=== PATIENT | male | born 1970 | race Caucasian/White ===

== ENCOUNTER 2023-06-19 21:44 | Observation (INO) ==
[2023-06-19] MEDS: TRANEXAMIC ACID / 0.7% NACL 1,000 MG/100 ML BAG IV STA (22:10)
[2023-06-19] MEDS: FAMOTIDINE 20MG IV PUSH 20 MG/5 ML SYR IV STA (22:10)
[2023-06-19] MEDS: diphenhydrAMINE 50 MG/ML VIAL IV STA (22:11)
[2023-06-19] MEDS: dexAMETHasone**PF** 10 MG/ML VIAL IV ONE (22:11)
[2023-06-19 22:34] LABS: Basophils # (auto) 0.07 K/uL (0.00-0.20); Basophils % (auto) 0.7 %; Eosinophils # (auto) 0.36 K/uL (0.00-0.50); Eosinophils % (auto) 3.8 %; Hematocrit (blood only) 45.5 % (42.0-52.0); Hemoglobin 15.4 g/dl (14.0-18.0); Immature Granulocytes # (auto) 0.03 K/uL (0.01-0.20); Immature Granulocytes % (auto) 0.3 %; Lymphocytes # (auto) 2.78 K/uL (1.20-3.40); Lymphocytes % (auto) 29.6 %; Mean Corpuscular Hemoglobin 30.9 pg (25.0-34.0); Mean Corpuscular Hgb Conc 33.8 g/dL (32.0-36.0); Mean Corpuscular Volume 91.2 fL (80.0-100.0); Mean Platelet Volume 9.1 fL (9.4-12.4); Monocytes # (auto) 0.79 K/uL (0.11-0.59); Monocytes % (auto) 8.4 %; Neutrophils # (auto) 5.36 K/uL (1.40-6.50); Neutrophils % (auto) 57.2 %; Platelet Count 264 K/uL (130-400); RDW Coefficient of Variation 12.6 % (11.5-14.5); RDW Standard Deviation 41.3 fL (36.4-46.3); Red Blood Count 4.99 M/uL (4.70-6.10); White Blood Count 9.39 K/ul (4.8-10.8)
[2023-06-19 23:03] LABS: Albumin Globulin Ratio 1.3 (0.9-2); Albumin Level 4.5 gm/dl (3.4-5.0); BUN Creatinine Ratio 11.8 (10-20); Bilirubin,Total 0.7 mg/dl (0.2-1.0); Calcium 9.5 mg/dl (8.6-10.3); Creatinine Clr Calc Pharmacy 91.9 ml/min; Est GFR (African American) 108.2 ml/min; Est GFR (Non-African American) 93.4 ml/min; Globulin 3.4 gm/dl (2.5-4.0); Potassium 3.7 mmol/L (3.5-5.1); Total Protein 7.9 gm/dl (6.0-8.3)
--- NOTE | 2023-06-20 00:24 | Emergency Department Note ---
History of Present Illness General Chief complaint: Facial Injury/Pain Stated complaint: SWOLLEN LIP Time Seen by Provider: 06/19/23 21:55 History of Present Illness This 53-year-old male presents the ER complaining of allergic reaction. Patient states he had [place]'s this morning and then since then his upper lip is been quite swollen. He took some Benadryl and Zyrtec with minimal improvement of symptoms. He is on losartan. No new medications. Patient denies chest pain, dyspnea, difficulty swallowing, breathing issues or any other medical complaints. No history of angioedema. Home Medications Medication Instructions Recorded Confirmed Type amlodipine 10 mg tablet 10 mg PO QAM 06/19/23 06/19/23 History losartan 100 mg tablet 100 mg PO QAM 06/19/23 06/19/23 History omeprazole 20 mg capsule,delayed 20 mg PO DAILYBB 06/19/23 06/19/23 History release Allergies Allergy/AdvReac Type Severity Reaction Status Date / Time No Known Allergies Allergy Verified 06/19/23 22:57 Past Med/Surg History Social History Smoking Status: Current every day smoker Preferred Language: Georgian Feels Safe at Home: Yes Review of Systems A total of 10 systems reviewed and were otherwise negative Physical Exam Vital Signs Vital Signs - 24 hr 06/19/23 21:44 06/19/23 22:03 06/19/23 22:20 Temperature 36.6 C Temperature Source Temporal Artery Scan Pulse Rate 93 H 97 H 91 H Pulse Rate [Apical] Pulse Rhythm Regular Regular Pulse Rhythm [Apical] Pulse Strength Normal Pulse Strength [Apical] Respiratory Rate 18 18 Respiratory Effort / Characteristics Non-Labored Respiratory Depth Normal Respiratory Pattern Regular Blood Pressure 158/104 H Blood Pressure [Right Arm] Blood Pressure Mean 122 Blood Pressure Mean [Right Arm] Blood Pressure Position Sitting Pulse Oximetry 97 99 Oxygen Delivery Method Room Air Room Air Sepsis Recent Fever Within 48 Hours No Sepsis New/Unexplained Change in Mental Status N/A Sepsis Action Taken by Nursing No Action Required 06/19/23 22:45 06/20/23 01:17 Temperature Temperature Source Pulse Rate Pulse Rate [Apical] 98 H 89 Pulse Rhythm Pulse Rhythm [Apical] Regular Pulse Strength Pulse Strength [Apical] Normal Respiratory Rate 18 18 Respiratory Effort / Characteristics Non-Labored Spontaneous Non-Labored Respiratory Depth Normal Normal Respiratory Pattern Blood Pressure Blood Pressure [Right Arm] 142/100 H 139/94 Blood Pressure Mean Blood Pressure Mean [Right Arm] 114 109 Blood Pressure Position Pulse Oximetry 97 95 Oxygen Delivery Method Room Air Room Air Sepsis Recent Fever Within 48 Hours Sepsis New/Unexplained Change in Mental Status Sepsis Action Taken by Nursing VITALS: Vitals are noted on the nurse's note and reviewed by myself. Vital signs stable. GENERAL: Pleasant gentleman with upper lip quite swollen, in no acute distress, nondiaphoretic, well-developed well-nourished. SKIN: The skin was without rashes, erythema, edema, or bruising. There is no tenting of the skin. Capillary reflex less than 2 seconds. HEAD: Normocephalic atraumatic. EARS: External auditory canals clear EYES: Pupils equal round and reactive to light and accommodation. Conjunctivae without injection, sclerae without icterus. Extraocular movements intact. NOSE: Patent, no discharge. MOUTH: Mucous membranes moist. Pharynx without erythema or exudate. Uvula midline. Airway patent. Tongue does not deviate. No tongue swelling. No other facial swelling. NECK: Supple without nuchal rigidity. No lymphadenopathy. No thyromegaly. Cervical spine is nontender. No JVD. HEART: Regular rate and rhythm LUNGS: Clear to auscultation bilaterally without wheezes, rales or rhonchi. No retractions or accessory muscle use. ABDOMEN: Positive bowel sounds x 4. Normal tympanic percussion. Soft, nontender, without masses or organomegaly. Armijo sign negative. No guarding or rebound tenderness. No CVA tenderness MUSCULOSKELETAL: No muscle atrophy, erythema, or edema noted. NEURO: Patient was alert and oriented to person place and time. Normal sensation to light and sharp touch. No focal neurological deficits. Course Administered Medications Discontinued Medications Dexamethasone Sodium Phosphate (DexamethasonePf 10 Mg/Ml Vial) 10 mg IV NOW ONE Stop: 06/19/23 22:03 Last Admin: 06/19/23 22:11 Dose: 10 mg Documented By: [facility] Diphenhydramine HCl (Diphenhydramine 50 Mg/Ml Vial) 50 mg IV NOW STA Stop: 06/19/23 22:03 Last Admin: 06/19/23 22:11 Dose: 50 mg Documented By: [facility] Famotidine (Pepcid 20mg Iv Push) 20 mg in 5 mls @ 2.5 mls/min IV NOW STA Stop: 06/19/23 22:03 Last Admin: 06/19/23 22:10 Dose: 2.5 mls/min Documented By: [facility] Tranexamic Acid (Tranexamic Acid / 0.7% Nacl) 1,000 mg in 100 mls @ 600 mls/hr IV NOW STA Stop: 06/19/23 22:11 Last Infusion: 06/19/23 22:45 Dose: Infused Documented By: [facility] Admin: 06/19/23 22:10 Dose: 600 mls/hr Documented By: [facility] Medical Decision Making Medical Records Attestation: I reviewed the patient's medical records. Home Medications Current Medication List: was personally reviewed by me Laboratory Data Attestation: I reviewed the patient's lab results. 06/19/23 22:10 06/19/23 22:10 Lab Results 06/19/23 Range/Units 22:10 WBC 9.39 (4.8-10.8) K/ul RBC 4.99 (4.70-6.10) M/uL Hgb 15.4 (14.0-18.0) g/dl Hct 45.5 (42.0-52.0) % MCV 91.2 (80.0-100.0) fL MCH 30.9 (25.0-34.0) pg MCHC 33.8 (32.0-36.0) g/dL RDW Std Deviation 41.3 (36.4-46.3) fL RDW Coeff of Eloisa 12.6 (11.5-14.5) % Plt Count 264 (130-400) K/uL MPV 9.1 L (9.4-12.4) fL Immature Gran % (Auto) 0.3 % Neut % (Auto) 57.2 % Lymph % (Auto) 29.6 % [place] % (Auto) 8.4 % Eos % (Auto) 3.8 % Baso % (Auto) 0.7 % Neut # (Auto) 5.36 (1.40-6.50) K/uL Lymph # (Auto) 2.78 (1.20-3.40) K/uL [place] # (Auto) 0.79 H (0.11-0.59) K/uL Eos # (Auto) 0.36 (0.00-0.50) K/uL Baso # (Auto) 0.07 (0.00-0.20) K/uL Immature Gran # (Auto) 0.03 (0.01-0.20) K/uL Sodium 136 (136-145) mmol/L Potassium 3.7 (3.5-5.1) mmol/L Chloride 101 (98-107) mmol/L Carbon Dioxide 25 (21-32) mmol/L Anion Gap 10 (3-11) BUN 11 (6-23) mg/dl Creatinine 0.93 (0.6-1.4) mg/dl Est Cr Clr Drug Dosing 91.9 ml/min Est GFR ( Amer) 108.2 ml/min Est GFR (Non-Af Amer) 93.4 ml/min BUN/Creatinine Ratio 11.8 (10-20) Glucose 98 (70-99(Fasting)) mg/dl Calcium 9.5 (8.6-10.3) mg/dl Total Bilirubin 0.7 (0.2-1.0) mg/dl AST 33 (13-39) U/L ALT 20 (7-52) U/L Alkaline Phosphatase 56 (34-104) U/L Total Protein 7.9 (6.0-8.3) gm/dl Albumin 4.5 (3.4-5.0) gm/dl Globulin 3.4 (2.5-4.0) gm/dl Albumin/Globulin Ratio 1.3 (0.9-2) MDM Narrative Prior records/ancillary studies reviewed. Triage Nursing notes reviewed. Additional history obtained from nursing. The patient's history was concerning for possible allergic reaction. Differential diagnosis: Etiologies such as allergic reaction, anaphylaxis, urticaria, Johnson-Francisco syndrome, toxic epidermal necrolysis, erythema multiforme, cellulitis, as well as others were entertained. Physical examination: As above. ER treatment provided: Continuous cardiac monitoring An order was placed for continuous cardiac monitoring. The monitor shows a rate of 60-100 with a sinus rhythm. Benadryl 50 mg IV Pepcid 20 mg IV Decadron 10 mg IV TXA 1 g IV On reassessment the patient felt better. Diagnostic interpretation by me: Independently Interpreted by myself and showed no worrisome leukocytosis, stable H&H Consultation: Medicine was consulted and case was discussed. Patient was admitted to the medical service. It appears the patient had an allergic reaction with concerns this could be related to his ARB and. Patient's upper lip was still quite swollen and because of this medicine was consulted and patient was admitted to the medical service. Patient is agreeable. No tongue involvement. No posterior throat involvement that was visible. By the evaluation outlined above emergent etiologies such as recurring anaphylaxis, anaphylatic shock, airway compromise, Johnson-Francisco syndrome, toxic epidermal necrolysis, erythema multiforme, infectious etiologies, as well as others were deemed relatively unlikely. The pt informed about the findings as listed above. All questions were answered and pleased with the treatment. The chart was completed utilizing [employer] Speech voice recognition software. Grammatical errors, random word insertions, pronoun errors, and incomplete sentences are an occassional consequence of this system due to software limitations, ambient noise, and hardware issues. Any formal questions or concerns about the content, text, or information contained within the body of this dictation should be directly addressed to the physician material assistant for clarification. Impression & Plan Angioedema Discharge Plan Visit Data Chief Complaint: Facial Injury/Pain Stated Complaint: SWOLLEN LIP ED Provider: Cecille Larios ED Midlevel Provider: Lupe Singh Discharge Problem: Angioedema Patient Disposition: Being Evaluated by Hospitalist Condition: Good Forms Stand Alone Forms: [email or web address] Prescriptions Prescriptions: No Action amlodipine 10 mg tablet 10 mg PO QAM omeprazole 20 mg capsule,delayed release(DR/EC) 20 mg PO DAILYBB losartan 100 mg tablet 100 mg PO QAM Referrals Referrals: PCP,NO [Primary Care Provider] - Discharge Problem: Angioedema Qualifiers: Encounter type: initial encounter Qualified Code(s): T78.3XXA - Angioneurotic edema, initial encounter
--- NOTE | 2023-06-20 01:45 | History & Physical Report ---
Date of Service June 20, 2023 Assessment & Plan (1) Angioedema: Plan: 53-year-old male with past medical history significant for chronic rhinitis, aortic root enlargement, hypertension, GERD, tobacco use disorder, history of alcohol abuse presents with swelling of the right upper lip since yesterday morning. Patient states he went to [employer] and after eating food he noticed swelling in the upper lip and also on the face. Currently swelling of face res olved, still has swelling in the upper lip. Denies any difficulty swallowing. No shortness of breath. No chest pain. No nausea. No abdominal pain. No headache. No runny nose or sore throat. No cough. Normal bowel and bladder movements. Hemodynamics are okay. Angioedema Of upper lip On losartan for several years Will hold losartan Got Decadron, IV Benadryl, IV Pepcid and TXA in the ER. Will continue with p.o. prednisone, Zyrtec and p.o. Pepcid and IV Benadryl as needed Needs to follow with PCP and allergy immunology Hypertension Continue home amlodipine Holding losartan Needs different antihypertensives IV labetalol as needed for now Will monitor Tobacco abuse Needs counseling Alcoholism Says drinks 4 beers daily says can go without drinking for few days without getting withdrawal symptoms will place on thiamine and folic acid and ativan prn. close monitor Aortic root enlargement Echo from July 2021 shows mildly enlarged aortic root at 4.1 cm follow-up DVT prophylaxis SCDs for now Disposition Med/telemetry. Full code History of Present Illness Chief Complaint: Angioedema of upper lip Primary Care Provider: NO PCP 53-year-old male with past medical history significant for chronic rhinitis, aortic root enlargement, hypertension, GERD, tobacco use disorder, history of alcohol abuse presents with swelling of the right upper lip since yesterday morning. Patient states he went to [employer] and after eating food he noticed swelling in the upper lip and also on the face. Currently swelling of face resolved, still has swelling in the upper lip. Denies any difficulty swallowing. No shortness of breath. No chest pain. No nausea. No abdominal pain. No headache. No runny nose or sore throat. No cough. Normal bowel and bladder movements. Hemodynamics are okay. Past medical history. As mentioned above. Past surgical history. EGD. Reconstruction of nose. Social history. Smokes 0.5 packs a day for 10 years. Alcohol :seems drinking 4 beers daily. No drug use. Family history.father from [place] at age of 52 Allergies Allergy/AdvReac Type Severity Reaction Status Date / Time No Known Allergies Allergy Verified 06/19/23 22:57 Home Medications Medication Instructions Recorded Confirmed Type amlodipine 10 mg tablet 10 mg PO QAM 06/19/23 06/19/23 History losartan 100 mg tablet 100 mg PO QAM 06/19/23 06/19/23 History omeprazole 20 mg capsule,delayed 20 mg PO DAILYBB 06/19/23 06/19/23 History release Past Med/Surg History Social History Smoking Status: Current every day smoker Tobacco Type: Cigarettes Cigarettes Per Day: 5-6; Do You Dip or Chew Tobacco: Yes; Tobacco Cessation Education Requested by Patient: No Hx Alcohol Use: Yes Alcohol type: beer Hx Substance Use: No Preferred Language: Bulgarian Communication Ability: Effective Flavor Maker Required: No Beliefs That Will Affect Care: None Current Living Situation: Family Current Living Situation Comment: Lives with sister Manisha Feels Safe at Home: Yes Safety Concerns: Feels Safe At This Time Assistive Devices: None Review of Systems Review of Systems: All systems reviewed & are unremarkable except as noted in HPI & below Physical Exam Physical Exam: General- Not in distress. Head- atraumatic. Upper lip swollen Eyes- PERRL ENT- oropharynx clear. Upper lip swollen Neck- supple, no JVD. Lungs- clear to auscultation no wheezing or crackles. Heart- regular rate and rhythm; no murmur, no gallop. Abdomen- normal bowel sounds, soft, nontender, no distension. Extremities- no pretibial edema, no erythema seen. Neuro- alert, oriented PERRL, EOMI; no facial palsy; no dysarthria; moves extrem ities. Results & Data Results & Data Vital Signs (Past 12 Hours) Vital Signs Temp Pulse Pulse Resp BP BP Pulse Ox 06/20/23 01:17 89 18 139/94 95 06/19/23 22:45 98 H 18 142/100 H 97 06/19/23 22:20 91 H 06/19/23 22:03 97 H 18 99 06/19/23 21:44 36.6 C 93 H 18 158/104 H 97 O2 Del Method 06/20/23 01:17 Room Air 06/19/23 22:45 Room Air 06/19/23 22:20 06/19/23 22:03 Room Air 06/19/23 21:44 Room Air Diagnostic Findings Laboratory Results WBC 9.39 K/ul (4.8-10.8) 06/19/23 22:10 RBC 4.99 M/uL (4.70-6.10) 06/19/23 22:10 Hgb 15.4 g/dl (14.0-18.0) 06/19/23 22:10 Hct 45.5 % (42.0-52.0) 06/19/23 22:10 MCV 91.2 fL (80.0-100.0) 06/19/23 22:10 MCH 30.9 pg (25.0-34.0) 06/19/23 22:10 MCHC 33.8 g/dL (32.0-36.0) 06/19/23 22:10 RDW Std Deviation 41.3 fL (36.4-46.3) 06/19/23 22:10 RDW Coeff of Eloisa 12.6 % (11.5-14.5) 06/19/23 22:10 Plt Count 264 K/uL (130-400) 06/19/23 22:10 MPV 9.1 fL (9.4-12.4) L 06/19/23 22:10 Immature Gran % (Auto) 0.3 % 06/19/23 22:10 Neut % (Auto) 57.2 % 06/19/23 22:10 Lymph % (Auto) 29.6 % 06/19/23 22:10 [place] % (Auto) 8.4 % 06/19/23 22:10 Eos % (Auto) 3.8 % 06/19/23 22:10 Baso % (Auto) 0.7 % 06/19/23 22:10 Neut # (Auto) 5.36 K/uL (1.40-6.50) 06/19/23 22:10 Lymph # (Auto) 2.78 K/uL (1.20-3.40) 06/19/23 22:10 [place] # (Auto) 0.79 K/uL (0.11-0.59) H 06/19/23 22:10 Eos # (Auto) 0.36 K/uL (0.00-0.50) 06/19/23 22:10 Baso # (Auto) 0.07 K/uL (0.00-0.20) 06/19/23 22:10 Immature Gran # (Auto) 0.03 K/uL (0.01-0.20) 06/19/23 22:10 Sodium 136 mmol/L (136-145) 06/19/23 22:10 Potassium 3.7 mmol/L (3.5-5.1) 06/19/23 22:10 Chloride 101 mmol/L (98-107) 06/19/23 22:10 Carbon Dioxide 25 mmol/L (21-32) 06/19/23 22:10 Anion Gap 10 (3-11) 06/19/23 22:10 BUN 11 mg/dl (6-23) 06/19/23 22:10 Creatinine 0.93 mg/dl (0.6-1.4) 06/19/23 22:10 Est Cr Clr Drug Dosing 91.9 ml/min 06/19/23 22:10 Est GFR ( Amer) 108.2 ml/min 06/19/23 22:10 Est GFR (Non-Af Amer) 93.4 ml/min 06/19/23 22:10 BUN/Creatinine Ratio 11.8 (10-20) 06/19/23 22:10 Glucose 98 mg/dl (70-99(Fasting)) 06/19/23 22:10 Calcium 9.5 mg/dl (8.6-10.3) 06/19/23 22:10 Total Bilirubin 0.7 mg/dl (0.2-1.0) 06/19/23 22:10 AST 33 U/L (13-39) 06/19/23 22:10 ALT 20 U/L (7-52) 06/19/23 22:10 Alkaline Phosphatase 56 U/L (34-104) 06/19/23 22:10 Total Protein 7.9 gm/dl (6.0-8.3) 06/19/23 22:10 Albumin 4.5 gm/dl (3.4-5.0) 06/19/23 22:10 Globulin 3.4 gm/dl (2.5-4.0) 06/19/23 22:10 Albumin/Globulin Ratio 1.3 (0.9-2) 06/19/23 22:10 Code Status & VTE Plan VTE Prophylaxis Plan VTE Prophylaxis will be ordered: Yes (1) Angioedema Encounter type: initial encounter Qualified Code(s): T78.3XXA - Angioneurotic edema, initial encounter
[2023-06-20] MEDS ORDERED: LABETALOL HCL IV 5 MG/ML 20ML IV PRN (05:13)
[2023-06-20] MEDS ORDERED: ACETAMINOPHEN 325 MG TAB PO PRN (05:13)
[2023-06-20] MEDS ORDERED: diphenhydrAMINE 50 MG/ML VIAL IV PRN (05:13)
[2023-06-20] MEDS ORDERED: LORazepam 0.5 MG in SYRINGE 0.25 ML IV PRN (05:13)
[2023-06-20] MEDS ORDERED: NITROGLYCERIN SL 0.4 MG/TAB TAB SL PRN (05:13)
[2023-06-20] MEDS: THIAMINE HCL 100 MG in SYRINGE 9 ML IV STA (06:28)
[2023-06-20] MEDS: SODIUM CHLORIDE 0.9% 1,000 ML IV SCH (06:33)
[2023-06-20] MEDS: PANTOprazole 40 MG TAB PO SCH (07:54)
[2023-06-20] MEDS: amLODIPine BESYLATE 5 MG TAB PO SCH (07:54)
[2023-06-20] MEDS: FAMOTIDINE 20 MG TAB PO SCH (07:54)
[2023-06-20] MEDS: predniSONE 20 MG TAB PO SCH (07:54)
[2023-06-20] MEDS: FOLIC ACID 1 MG TAB PO SCH (07:55)
[2023-06-20] MEDS: CETIRIZINE HCL 10 MG TABLET PO SCH (07:55)
[2023-06-20] MEDS: CEROVITE ADV FORMULA TAB PO SCH (07:55)
[2023-06-20] MEDS: THIAMINE HCL 100 MG TAB PO SCH (07:55)
[2023-06-20 08:11] LABS: Hematocrit (blood only) 44.4 % (42.0-52.0); Hemoglobin 15.1 g/dl (14.0-18.0); Immature Granulocytes # (auto) 0.02 K/uL (0.01-0.20); Immature Granulocytes % (auto) 0.4 %; Lymphocytes # (auto) 0.41 K/uL (1.20-3.40); Lymphocytes % (auto) 8.6 %; Mean Corpuscular Hemoglobin 30.9 pg (25.0-34.0); Mean Corpuscular Volume 90.8 fL (80.0-100.0); Mean Platelet Volume 9.4 fL (9.4-12.4); Monocytes # (auto) 0.06 K/uL (0.11-0.59); Monocytes % (auto) 1.3 %; Neutrophils # (auto) 4.28 K/uL (1.40-6.50); Neutrophils % (auto) 89.7 %; Platelet Count 269 K/uL (130-400); RDW Coefficient of Variation 12.4 % (11.5-14.5); RDW Standard Deviation 41.6 fL (36.4-46.3); Red Blood Count 4.89 M/uL (4.70-6.10); White Blood Count 4.77 K/ul (4.8-10.8)
[2023-06-20 08:26] LABS: BUN Creatinine Ratio 16.1 (10-20); Calcium 9.5 mg/dl (8.6-10.3); Creatinine Clr Calc Pharmacy 98.2 ml/min; Est GFR (African American) 114.2 ml/min; Est GFR (Non-African American) 98.5 ml/min; Magnesium 2.1 mg/dl (1.7-2.4); Potassium 4.3 mmol/L (3.5-5.1)
--- NOTE | 2023-06-20 13:06 | Communication Note ---
Date of Service: June 20, 2023 Patient seen and examined Has upper lip swelling. Denies any sore throat, dysphagia, odynophagia, shortness of breath, rash. Exam notable for upper lip swelling, tachycardia and elevated BP Continue prednisone, famotidine, cetirizine. Losartan has been discontinued. Start carvedilol 3.125 mg twice daily. Monitor blood pressure Continue amlodipine Other plans as detailed in H&P this morning
[2023-06-20] MEDS: carvediloL 3.125 MG TAB PO STA (14:32)
[2023-06-21 06:23] LABS: Hematocrit (blood only) 40.2 % (42.0-52.0); Hemoglobin 13.6 g/dl (14.0-18.0); Mean Corpuscular Hemoglobin 30.6 pg (25.0-34.0); Mean Corpuscular Hgb Conc 33.8 g/dL (32.0-36.0); Mean Corpuscular Volume 90.3 fL (80.0-100.0); Mean Platelet Volume 9.5 fL (9.4-12.4); Platelet Count 250 K/uL (130-400); RDW Coefficient of Variation 12.5 % (11.5-14.5); RDW Standard Deviation 40.9 fL (36.4-46.3); Red Blood Count 4.45 M/uL (4.70-6.10); White Blood Count 9.21 K/ul (4.8-10.8)
[2023-06-21 06:51] LABS: BUN Creatinine Ratio 18.1 (10-20); Calcium 8.9 mg/dl (8.6-10.3); Creatinine Clr Calc Pharmacy 90.9 ml/min; Est GFR (African American) 106.9 ml/min; Est GFR (Non-African American) 92.2 ml/min; Potassium 3.3 mmol/L (3.5-5.1)
[2023-06-21] MEDS: carvediloL 3.125 MG TAB PO SCH (08:56)
--- NOTE | 2023-06-21 10:48 | Discharge Summary ---
Date of Service June 21, 2023 Admission HPI Per Admitting Provider 53-year-old male with past medical history significant for chronic rhinitis, aortic root enlargement, hypertension, GERD, tobacco use disorder, history of alcohol abuse presents with swelling of the right upper lip since yesterday morning. Patient states he went to [place] and after eating food he noticed swelling in the upper lip and also on the face. Currently swelling of face resolved, still has swelling in the upper lip. Denies any difficulty swallowing. No shortness of breath. No chest pain. No nausea. No abdominal pain. No headache. No runny nose or sore throat. No cough. Normal bowel and bladder movements. Hemodynamics are okay. Past medical history. As mentioned above. Past surgical history. EGD. Reconstruction of nose. Social history. Smokes 0.5 packs a day for 10 years. Alcohol :seems drinking 4 beers daily. No drug use. Family history.father from [place] at age of 52 Admission Exam Per Admitting Provider General- Not in distress. Head- atraumatic. Upper lip swollen Eyes- PERRL ENT- oropharynx clear. Upper lip swollen Neck- supple, no JVD. Lungs- clear to auscultation no wheezing or crackles. Heart- regular rate and rhythm; no murmur, no gallop. Abdomen- normal bowel sounds, soft, nontender, no distension. Extremities- no pretibial edema, no erythema seen. Neuro- alert, oriented PERRL, EOMI; no facial palsy; no dysarthria; moves extremities. Principal Diagnosis Angioedema of upper lip Discharge Exam General: No acute distress Eyes: PERRL, conjunctivae normal, not pale, anicteric sclerae, EOM intact bilaterally ENMT: External ear and nose normal, oropharynx des. Upper lip swelling mostly resolved Respiratory: Normal respiratory effort, no respiratory distress, lungs clear to auscultation, no crackles and no wheezes Cardiovascular: S1 S2 Gastrointestinal (Abdomen): Abdomen is not distended, soft, non-tender to palpation, no guarding, no palpable hepatosplenomegaly, normal bowel sounds Musculoskeletal: No cyanosis or clubbing, all extremities motor strength 5/5 Neurologic: PERRL No focal weakness, sensation grossly intact Psychiatric: Alert and oriented x 3, euthymic affect Discharge Data Allergies Allergy/AdvReac Type Severity Reaction Status Date / Time losartan Allergy Severe angioedema Verified 06/21/23 08:03 Consultations 06/19/23 23:28 ED Decision to Admit Stat Hospital Course (1) Angioedema: 53-year-old male with past medical history significant for chronic rhinitis, aortic root enlargement, hypertension, GERD, tobacco use disorder, history of alcohol abuse presents with swelling of the right upper lip since yesterday morning. Patient states he went to [place] and after eating food he noticed swelling in the upper lip and also on the face. Currently swelling of face resolved, still has swelling in the upper lip. Denies any difficulty swallowing. No shortness of breath. No chest pain. No nausea. No abdominal pain. No headache. No runny nose or sore throat. No cough. Normal bowel and bladder movements. Hemodynamics are okay. Angioedema Of upper lip Has been on losartan for several years Will hold losartan Got Decadron, IV Benadryl, IV Pepcid and TXA in the ER. Was treated with p.o. prednisone, Zyrtec and p.o. Pepcid and IV Benadryl as needed Discharged on prednisone 40mg daily for 3 days, then 20mg daily for 3 days Discharged on cetirizine 10mg daily for 1 week and pepcid 20mg BID for 1 week Losartan stopped. Avoid ACEI/ARB To follow up with PCP who can arrange allergy follow up Hypertension Continue home amlodipine Losartan stopped as above Started on Carvedilol 3.125mg BID for better BP control Tobacco abuse Counseled about smoking cessation Alcoholism Says drinks 4 beers daily Counseled about alcohol cessation Aortic root enlargement Echo from July 2021 shows mildly enlarged aortic root at 4.1 cm PCP to follow-up Total Time Total Time Spent Total Time Spent (In Minutes): 35 Total Time Includes: Examination of the Patient, Discharge Planning and Medication Reconciliation Discharge Plan Discharge Items Patient Disposition: Home - Self-Care Reason For Visit: ANGIOEDEMA OF UPPER LIP Discharge Diagnosis: Angioedema of upper lip Condition on Discharge: Good Activity: Resume your previous activity Non-emergency contact: Primary Care Provider Call non-emergency contact if: you have any medication questions Follow-up/Referrals: PCP,NO [Primary Care Provider] - Diet: Heart Healthy Addtl Attending Provider Instructions: Mr Peñaloza You came to the hospital with upper lip swelling. You were managed for angioedema. PLEASE STOP TAKING LOSARTAN GOING FORWARD. You were started on carvedilol for your hypertension. Continue taking amlodipine. You are being discharged on Prednisone. Take 40mg daily for next 3 days, then 20mg daily for 3 days and then stop. You are being discharged on cetirizine and pepcid for a week. It is very important you follow up with your Family Doctor. It was a pleasure taking care of you. Pending Studies at Discharge: No Stand-Alone Forms: [facility], Smoking Cessation Medications and DC Order Prescriptions: New cetirizine 10 mg Tablet 10 mg PO QAM 7 Days Qty: 7 0RF prednisone 20 mg Tablet See Rx Instructions .ROUTE .COMPLEX Qty: 9 0RF Rx Instructions: Take 40mg daily for 3 days, then 20mg daily for 3 days famotidine 20 mg Tablet 20 mg PO BID 7 Days Qty: 14 0RF carvedilol 3.125 mg tablet 3.125 mg PO BID Qty: 60 0RF Rx Instructions: must administer with a meal/food Continued amlodipine 10 mg tablet 10 mg PO QAM omeprazole 20 mg capsule,delayed release(DR/EC) 20 mg PO DAILYBB Discontinued losartan 100 mg tablet 100 mg PO QAM Discharge Orders: Discharge Order (Routine); Ordered 06/21/23 Ordered By: Juany Wong/Other Patient Handouts: ED Angioedema Admission Data Admit Date/Time: 06/20/23 01:33 Attending Provider: Juany Mccray I. Admit Provider: Yasir Pike Primary Care Provider: PCP,NO Other Providers: Yasir Pike Other Interventions: Discharge Summary Assessment (RN) Last Done: 06/21/23 11:02
== END 2023-06-21 11:04 | disposition home or self-care (01) | DRG 916 ==
LOC: ED 21:44 → 2N 06-20 01:33 → INTOOBSV 06-20 01:33 → 2N 06-20 03:50